=== PATIENT | female | born 1940 | race Caucasian/White ===

== ENCOUNTER → 2021-02-08 | Outpatient (CLI) | payer MEDICARE ==
[~2021-02-08] MED LIST: CENTRUM SILVER1 EAC4 PO; CLARITIN10 M2 PO; CRANBERRY PO; FISH OIL 1,0001 EAC1 PO; GLUCOSAMINE-CH1 EA17 PO; LIPITOR10 MG PO; OCUVITE ADULT1 EAC1 PO; OMNICEF 300 MG300 MG PO; SINGULAIR10 MG PO
== END ==
LOC: EXRD 11:19
DX: M51.36 Other intervertebral disc degeneration, lumbar region (principal); M25.511 Pain in right shoulder; M16.11 Unilateral primary osteoarthritis, right hip; S73.001A Unspecified subluxation of right hip, initial encounter; M47.816 Spondylosis without myelopathy or radiculopathy, lumbar region; M43.16 Spondylolisthesis, lumbar region; X58.XXXA Exposure to other specified factors, initial encounter
CPT/HCPCS: 72100; 73502

== ENCOUNTER → 2021-11-28 | Outpatient (CLI) | payer MEDICARE | LOC: EXRD 13:29 | DX: M47.26 Other spondylosis with radiculopathy, lumbar region (principal); R10.9 Unspecified abdominal pain; K56.41 Fecal impaction | CPT/HCPCS: 72100; 74018 ==